=== PATIENT | female | born 1950 | race American Indian/Alaskan Native ===

== ENCOUNTER 2017-07-05 10:53 | Inpatient (IN) | payer MEDICARE ==
[2017-07-05 10:53] VITALS: BMI 26.6
--- NOTE | 2017-07-05 12:41 | C.PDOC ---
History Of Present Illness 66 y/o female with history of alcoholism presents to ED sent by Dr. Ellison for evaluation of abdomen distention developed 3 weeks ago. Patient admits to cocaine use, last use was 1 week ago and states she stopped drinking 2 days ago after she saw Dr. Ellison. Patient admits to trouble breathing secondary to symptom and reports occasional abdomen pain. Patient denies fever, chills, chest pain, nausea, vomiting or any other complaints at this time. Time Seen by Provider: 07/05/17 11:38 Chief Complaint (Nursing): Abdominal Pain History Per: Patient History/Exam Limitations: no limitations Onset/Duration Of Symptoms: Days, Waxing/Waning Location Of Pain/Discomfort: Diffuse Past Medical History Reviewed: Historical Data, Nursing Documentation, Vital Signs Vital Signs: Last Vital Signs Temp 97.9 F 07/05/17 10:56 Pulse 107 H 07/05/17 10:56 Resp 20 07/05/17 10:56 BP 171/94 H 07/05/17 10:56 Pulse Ox 95 07/05/17 13:51 - Medical History PMH: Gastrointestinal Ulcer Surgical History: No Surg Hx Family History: States: No Known Family Hx - Social History Hx Alcohol Use: Yes Hx Substance Use: No Review Of Systems Constitutional: Negative for: Fever, Chills Cardiovascular: Negative for: Chest Pain Respiratory: Negative for: Cough, Shortness of Breath Gastrointestinal: Positive for: Abdominal Pain. Negative for: Nausea, Vomiting Skin: Negative for: Rash Physical Exam - Physical Exam Appears: Non-toxic, No Acute Distress Skin: Warm, Dry Head: Atraumatic, Normacephalic Oral Mucosa: Moist Neck: Normal ROM, Supple Cardiovascular: Rhythm Regular, Other (Tachycardic) Respiratory: Normal Breath Sounds, No Rales, No Rhonchi, No Wheezing Gastrointestinal/Abdominal: No Tenderness, Distention, Ascites Back: No CVA Tenderness Extremity: No Deformity, Other (bilateral distal legs chronic skin dried crusty changes) Extremity: Bilateral: Normal ROM Pulses: Left Dorsalis Pedis: Normal, Right Dorsalis Pedis: Normal Neurological/Psych: Oriented x3, Normal Speech ED Course And Treatment - Laboratory Results Result Diagrams: 07/05/17 12:40 07/05/17 12:40 ECG: Interpreted By Me, Viewed By Me ECG Rhythm: Sinus Rhythm Rate From EC (BPM) O2 Sat by Pulse Oximetry: 95 (RA) Pulse Ox Interpretation: Normal Progress Note: Consulted with GI. Blood work, UA, CTA, CXR ordered. Patient admitted to hospital for IR procedure Medical Decision Making Medical Decision Making: discussed with Dr Oral Chavez, will admit to his service. Disposition - Disposition Disposition: HOSPITALIZED Disposition Time: 13:24 Condition: FAIR - Clinical Impression Clinical Impression: Ascites, Liver disease - PA / EVENTS TRAFFIC CONTROLLER / Resident Statement MD/DO has reviewed & agrees with the documentation as recorded. - Scribe Statement The provider has reviewed the documentation as recorded by the Noamibwali Gill All medical record entries made by the Simon were at my direction and personally dictated by me. I have reviewed the chart and agree that the record accurately reflects my personal performance of the history, physical exam, medical decision making, and the department course for this patient. I have also personally directed, reviewed, and agree with the discharge instructions and disposition.
[2017-07-05 12:46] LABS: BASO % 0.8 % (0.0-2.0); EOS # 0.1 K/uL (0.0-0.7); EOS % 1.9 % (0.0-4.0); HEMOGLOBIN 14.8 g/dL (11.0-16.0); LYMPH # 0.8 K/uL (1.0-4.3); LYMPH % 19.6 % (20.0-40.0); MEAN CORPUSCULAR HEMOGLOBIN 32.8 pg (27.0-31.0); MEAN CORPUSCULAR HGB CONC 33.8 g/dL (33.0-37.0); MEAN PLATELET VOLUME 9.9 fL (7.2-11.7); MONO # 0.5 K/uL (0.0-0.8); MONO % 13.7 % (0.0-10.0); NEUT # 2.5 K/uL (1.8-7.0); NRBC % 0.1 % (0.0-2.0); RBC 4.52 Mil/uL (3.80-5.20); RED CELL DISTRIBUTION WIDTH 14.6 % (11.5-14.5)
[2017-07-05 12:48] VITALS: RESP 20
[2017-07-05 12:54] LABS: INR 1.8
[2017-07-05 13:01] LABS: ALB/GLOB RATIO 0.5 (1.0-2.1); ALBUMIN 3.2 g/dL (3.5-5.0); ALT/SGPT 34 U/L (9-52); AST/SGOT 70 U/L (14-36); BLOOD UREA NITROGEN 13 mg/dL (7-17); CALCIUM 8.3 mg/dl (8.6-10.4); GFR AFRICAN-AMERICAN > 60; GFR NON-AFRICAN AMERICAN 55; LIPASE 109 U/L (23-300)
[2017-07-05 13:06] LABS: PROTHROMBIN TIME 21.2 SECONDS (9.7-12.2)
[2017-07-05 14:05] LABS: HEPATITIS B SURFACE AG Negative (NEGATIVE)
[2017-07-05 14:11] LABS: HEPATITIS A IGM NEGATIVE (NEGATIVE); HEPATITIS B CORE AB NEGATIVE (NEGATIVE)
[2017-07-05] MEDS ORDERED: Iodixanol 320 MG/ML 100 ML BOTTLE IV ONE (14:27)
--- NOTE | 2017-07-05 14:36 | RAD ---
Chest x-ray single frontal view History: Chest pain. Comparison: None available. Findings: Patchy consolidative changes at the left lung base which may represent atelectasis and or infiltrate. Question trace left pleural effusion. Tortuous ectatic aorta. Top normal heart size. Degenerative changes in the spine and shoulders. Small punctate nodular density in the lateral aspect of the right midlung zone. Impression: Patchy consolidative changes at the left lung base which may represent atelectasis and or infiltrate. Question trace left pleural effusion. Tortuous ectatic aorta. Top normal heart size. Degenerative changes in the spine and shoulders. Small punctate nodular density in the lateral aspect of the right midlung zone.
--- NOTE | 2017-07-05 15:13 | CT ---
PROCEDURE: CT Abdomen and Pelvis with and without intravenous contrast HISTORY: ascites COMPARISON: None. TECHNIQUE: Axial images of the abdomen were obtained in the pre contrast, hepatic arterial and portal venous phases of enhancement. Precontrast images of the pelvis were also included. Coronal and sagittal reformats were generated. Contrast dose: 100 mL Visipaque 320 Radiation dose: Total exam DLP = 2484.36 mGy-cm. This CT exam was performed using one or more of the following dose reduction techniques: Automated exposure control, adjustment of the mA and/or kV according to patient size, and/or use of iterative reconstruction technique. FINDINGS: LOWER THORAX: Bilateral lower lobe linear scar/ atelectasis. LIVER: Severe atrophy with nodular contour consistent with hepatic cirrhosis. No mass. No evidence of arterial phase enhancement to suggest early hepatic cellular neoplasm. No biliary dilatation. GALLBLADDER AND BILE DUCTS: Unremarkable. PANCREAS: Unremarkable. No gross lesion or ductal dilatation. SPLEEN: Mild splenomegaly. The spleen measures up to 14.2 cm greatest dimension. No mass. ADRENALS: Unremarkable. No mass. KIDNEYS AND URETERS: Unremarkable. No hydronephrosis. No solid mass. VASCULATURE: Unremarkable. No aortic aneurysm. BOWEL: Unremarkable. No obstruction. No gross mural thickening. APPENDIX: Not identified. No secondary findings. PERITONEUM: Massive ascites. LYMPH NODES: Unremarkable. No enlarged lymph nodes. BLADDER: Nondistended REPRODUCTIVE: Uterus significant for coarse calcification, likely calcified degenerated fibroids. BONES: Mild lumbar levoscoliosis. OTHER FINDINGS: None. IMPRESSION: Hepatic cirrhosis. No evidence of hepatocellular neoplasm. Mild splenomegaly. Massive ascites.
[2017-07-05 15:47] LABS: HEPATITIS C ANTIBODY REACTIVE (NEGATIVE)
--- NOTE | 2017-07-05 15:54 | CP.PCM.CON ---
<Adali Chavez - Last Filed: 07/05/17 18:05> History of Present Illness - History of Present Illness History of Present Illness: PGY4 Initial GI Consultation Latisha Garner is a 66 year old female with history of ETOH cirrhosis, chronic HCV (diagnosed 2015, treatment naive) who presented to Dr. Black office 2 days ago with complaints of abd distention. She reported progressive abdominal pain and distention over the past one month. She describes generalized discomfort along with extreme dyspnea with minimal exertion. She has not seen any physician for management of her liver disease for the past 2 years. She denies nausea, vomiting, fever/chills, or rectal bleeding. She reports ongoing weight loss but cannot quantify amount. She continues to drink ETOH, approximately 3-4 drinks per week, previously consumed 3-4 drinks daily x 25 years. She had an EGD a few years ago which showed "ulcers" as per patient, no prior colonoscopy. Of note, she does have family history of colon cancer. PMHx: ETOH cirrhosis, chronic HCV (diagnosed 2015, treatment naive) PSHx: none Family Hx: Mother Colon Ca at age 60 Social Hx: Smoker 1/2 PPD for 20+ years, ETOH 3-4 alcohol drinks daily for 25+ years and significant consumption on the weekends, denies any illicit drug use Endo Hx: EGD 2013 "ulcers" ROS: 12 point ROS conducted, neg other than above= Past Patient History - Past Social History Smoking Status: Light Smoker < 10 Cigarettes Daily - CARDIAC Hx Pacemaker: No - NEUROLOGICAL Hx Paralysis: No - HEMATOLOGICAL/ONCOLOGICAL Hx Blood Transfusions: No - MUSCULOSKELETAL/RHEUMATOLOGICAL Hx Musculoskeletal Disorders: No - GASTROINTESTINAL Other/Comment: cirrhosis - PSYCHIATRIC Hx Substance Use: No - SURGICAL HISTORY Hx Surgeries: No - ANESTHESIA Hx Anesthesia Reactions: No Hx Malignant Hyperthermia: No Meds Allergies/Adverse Reactions: Allergies Allergy/AdvReac Type Severity Reaction Status Date / Time WHOLE MILK AdvReac Intermediate GI UPSET Uncoded 07/05/17 10:58 eggs AdvReac gi upset Uncoded 07/05/17 10:58 - Medications Medications: Current Medications Potassium Chloride (K-Dur 20 Meq Er Tab) 40 meq PO DAILY MILO Physical Exam - Constitutional Appears: Cachectic, Chronically Ill - Head Exam Head Exam: ATRAUMATIC, NORMOCEPHALIC - Eye Exam Eye Exam: Normal appearance - ENT Exam ENT Exam: Mucous Membranes Moist, Normal Exam - Neck Exam Neck exam: Positive for: Normal Inspection - Respiratory Exam Respiratory Exam: Clear to Auscultation Bilateral, NORMAL BREATHING PATTERN. absent: Rales, Rhonchi, Wheezes, Respiratory Distress - Cardiovascular Exam Cardiovascular Exam: REGULAR RHYTHM, +S1, +S2 - GI/Abdominal Exam GI & Abdominal Exam: Distended. absent: Guarding, Hernia, Rigid, Tenderness Additional comments: +fluid wave - Neurological Exam Neurological exam: Alert, Oriented x3 - Psychiatric Exam Psychiatric exam: Normal Affect, Normal Mood - Skin Skin Exam: Dry, Intact, Normal Color, Warm Results - Vital Signs Recent Vital Signs: Last Vital Signs Temp 98 F 07/05/17 14:59 Pulse 103 H 07/05/17 14:59 Resp 20 07/05/17 14:59 BP 117/72 07/05/17 14:59 Pulse Ox 96 07/05/17 14:59 - Labs Result Diagrams: 07/05/17 12:40 07/05/17 12:40 Labs: Laboratory Results - last 24 hr 07/05/17 07/05/17 07/05/17 12:40 12:40 12:40 WBC 4.0 L RBC 4.52 Hgb 14.8 Hct 43.8 MCV 97.0 MCH 32.8 H MCHC 33.8 RDW 14.6 H Plt Count 93 L MPV 9.9 Neut % (Auto) 64.0 Lymph % (Auto) 19.6 L Stark % (Auto) 13.7 H Eos % (Auto) 1.9 Baso % (Auto) 0.8 Neut # (Auto) 2.5 Lymph # (Auto) 0.8 L Stark # (Auto) 0.5 Eos # (Auto) 0.1 Baso # (Auto) 0.0 Differential Comment PT 21.2 H INR 1.8 APTT 41 H Sodium 139 Potassium 3.5 L Chloride 97 L Carbon Dioxide 28 Anion Gap 18 BUN 13 Creatinine 1.0 Est GFR ( Amer) > 60 Est GFR (Non-Af Amer) 55 Random Glucose 97 Lactic Acid Calcium 8.3 L Total Bilirubin 5.2 H AST 70 H ALT 34 Alkaline Phosphatase 118 Ammonia Total Protein 9.5 H Albumin 3.2 L Globulin 6.3 H Albumin/Globulin Ratio 0.5 L Lipase 109 Alpha Fetoprotein IgG Hepatitis A IgM Ab Hep Bs Antigen Hep B Core IgM Ab Hepatitis C Antibody 07/05/17 07/05/17 07/05/17 12:40 13:10 13:10 WBC RBC Hgb Hct MCV MCH MCHC RDW Plt Count MPV Neut % (Auto) Lymph % (Auto) Stark % (Auto) Eos % (Auto) Baso % (Auto) Neut # (Auto) Lymph # (Auto) Stark # (Auto) Eos # (Auto) Baso # (Auto) Differential Comment PT INR APTT Sodium Potassium Chloride Carbon Dioxide Anion Gap BUN Creatinine Est GFR ( Amer) Est GFR (Non-Af Amer) Random Glucose Lactic Acid 2.0 Calcium Total Bilirubin AST ALT Alkaline Phosphatase Ammonia 48 H Total Protein Albumin Globulin Albumin/Globulin Ratio Lipase Alpha Fetoprotein IgG 3634.2 H Hepatitis A IgM Ab Hep Bs Antigen Hep B Core IgM Ab Hepatitis C Antibody 07/05/17 07/05/17 13:10 13:10 WBC RBC Hgb Hct MCV MCH MCHC RDW Plt Count MPV Neut % (Auto) Lymph % (Auto) Stark % (Auto) Eos % (Auto) Baso % (Auto) Neut # (Auto) Lymph # (Auto) Stark # (Auto) Eos # (Auto) Baso # (Auto) Differential Comment PT INR APTT Sodium Potassium Chloride Carbon Dioxide Anion Gap BUN Creatinine Est GFR ( Amer) Est GFR (Non-Af Amer) Random Glucose Lactic Acid Calcium Total Bilirubin AST ALT Alkaline Phosphatase Ammonia Total Protein Albumin Globulin Albumin/Globulin Ratio Lipase Alpha Fetoprotein 6.7 IgG Hepatitis A IgM Ab Negative Hep Bs Antigen Negative Hep B Core IgM Ab Negative Hepatitis C Antibody Reactive Assessment & Plan - Assessment and Plan (Free Text) Assessment: Latihsa Garner is a 66 year old female with history of ETOH cirrhosis, chronic HCV (diagnosed 2016, treatment naive) who presented with abd distention Tense Ascites Decompensated liver cirrhosis etiology likely ETOH vs Hep C, r/o autominne or other viral etiologies Coagulopathy 2/2 to above Alcohol Abuse Fmaily hx of colon cancer Plan: -will need IR guided paracentesis -diagnostic and therapeutic tap -fluid analysis should include cell count w/ diff, total protein, and albumin -start lactulose daily for 2 BM daily -Liver Triple CT reviewed: neg HCC, + massive ascities -will need to eventually be started on diuretics after paracentesis -will need AMA, CADE, IGG, LIver-Kidney; hep viral panel -Hep C viral load -will eventually need EGD and colonoscopy Will d/W Dr. Ellison <Alan Ellison - Last Filed: 07/05/17 20:22> Meds - Medications Medications: Current Medications Furosemide (Lasix) 20 mg IVP DAILY MILO Lactulose (Enulose) 20 gm PO HS MILO Pantoprazole Sodium (Protonix Ec Tab) 40 mg PO DAILY MILO Potassium Chloride (K-Dur 20 Meq Er Tab) 40 meq PO DAILY MILO Last Admin: 07/05/17 16:15 Dose: 40 meq Results - Vital Signs Recent Vital Signs: Last Vital Signs Temp 98.4 F 07/05/17 15:00 Pulse 109 H 07/05/17 15:00 Resp 20 07/05/17 15:00 BP 146/92 H 07/05/17 15:00 Pulse Ox 96 07/05/17 15:00 - Labs Result Diagrams: 07/05/17 12:40 07/05/17 12:40 Labs: Laboratory Results - last 24 hr 07/05/17 07/05/17 07/05/17 12:40 12:40 12:40 WBC 4.0 L RBC 4.52 Hgb 14.8 Hct 43.8 MCV 97.0 MCH 32.8 H MCHC 33.8 RDW 14.6 H Plt Count 93 L MPV 9.9 Neut % (Auto) 64.0 Lymph % (Auto) 19.6 L Stark % (Auto) 13.7 H Eos % (Auto) 1.9 Baso % (Auto) 0.8 Neut # (Auto) 2.5 Lymph # (Auto) 0.8 L Stark # (Auto) 0.5 Eos # (Auto) 0.1 Baso # (Auto) 0.0 Differential Comment PT 21.2 H INR 1.8 APTT 41 H Sodium 139 Potassium 3.5 L Chloride 97 L Carbon Dioxide 28 Anion Gap 18 BUN 13 Creatinine 1.0 Est GFR ( Amer) > 60 Est GFR (Non-Af Amer) 55 Random Glucose 97 Lactic Acid Calcium 8.3 L Total Bilirubin 5.2 H AST 70 H ALT 34 Alkaline Phosphatase 118 Ammonia Total Protein 9.5 H Albumin 3.2 L Globulin 6.3 H Albumin/Globulin Ratio 0.5 L Lipase 109 Alpha Fetoprotein IgG Hepatitis A IgM Ab Hep Bs Antigen Hep B Core IgM Ab Hepatitis C Antibody 07/05/17 07/05/17 07/05/17 12:40 13:10 13:10 WBC RBC Hgb Hct MCV MCH MCHC RDW Plt Count MPV Neut % (Auto) Lymph % (Auto) Stark % (Auto) Eos % (Auto) Baso % (Auto) Neut # (Auto) Lymph # (Auto) Stark # (Auto) Eos # (Auto) Baso # (Auto) Differential Comment PT INR APTT Sodium Potassium Chloride Carbon Dioxide Anion Gap BUN Creatinine Est GFR ( Amer) Est GFR (Non-Af Amer) Random Glucose Lactic Acid 2.0 Calcium Total Bilirubin AST ALT Alkaline Phosphatase Ammonia 48 H Total Protein Albumin Globulin Albumin/Globulin Ratio Lipase Alpha Fetoprotein IgG 3634.2 H Hepatitis A IgM Ab Hep Bs Antigen Hep B Core IgM Ab Hepatitis C Antibody 07/05/17 07/05/17 13:10 13:10 WBC RBC Hgb Hct MCV MCH MCHC RDW Plt Count MPV Neut % (Auto) Lymph % (Auto) Stark % (Auto) Eos % (Auto) Baso % (Auto) Neut # (Auto) Lymph # (Auto) Stark # (Auto) Eos # (Auto) Baso # (Auto) Differential Comment PT INR APTT Sodium Potassium Chloride Carbon Dioxide Anion Gap BUN Creatinine Est GFR ( Amer) Est GFR (Non-Af Amer) Random Glucose Lactic Acid Calcium Total Bilirubin AST ALT Alkaline Phosphatase Ammonia Total Protein Albumin Globulin Albumin/Globulin Ratio Lipase Alpha Fetoprotein 6.7 IgG Hepatitis A IgM Ab Negative Hep Bs Antigen Negative Hep B Core IgM Ab Negative Hepatitis C Antibody Reactive Attending/Attestation - Attestation I have personally seen and examined this patient.: Yes I have fully participated in the care of the patient.: Yes I have reviewed all pertinent clinical information: Yes Notes (Text): 07/05/17 20:14 I have seen and examined patient with GI fellow. Agree with above documentation with the following additions. In brief, this is a 66 year old female with history of HCV (treatment naive)/ETOH cirrhosis who presents to hospital with complaint of progressive increase in abdominal girth and extreme dyspnea on exertion with fatigue for the past one month. She also reports recent weight loss but cannot quantify amount. She continues to consume ETOH ( up to 3-4 drinks per day). She also reports epigastric abdominal pain but denies nausea, vomiting, fever/chills, rectal bleeding. She had an EGD several years ago which showed ulcer disease according to patient, no prior colonoscopy. Additional physical examination: Abdomen: +hepato/splenomegaly HCV/ETOH decompensated cirrhosis, admission MELD 19 Ascites Weight loss Triple phase liver CT reviewed by me showing significant ascites, splenomegaly, no hepatic lesions - Low sodium diet as tolerated - Patient will require diagnostic and therapeutic paracentesis - Begin lactulose therapy for HE prevention - Patient will require diuretic therapy, will initiate following paracentesis - Obtain HCV viral load - Obtain autoimmune panel testing - LFTs stable, continue to monitor - Patient will eventually require EGD/colonoscopy particularly given family history of colon cancer. This can be arranged electively as outpatient pending patient clinical progress.
[2017-07-05] MEDS: Potassium Chloride 20 mEq ER Tab PO SCH (16:15)
--- NOTE | 2017-07-05 18:55 | CP.PCM.HP ---
Past Patient History - Past Social History Smoking Status: Light Smoker < 10 Cigarettes Daily - CARDIAC Hx Pacemaker: No - NEUROLOGICAL Hx Paralysis: No - HEMATOLOGICAL/ONCOLOGICAL Hx Blood Transfusions: No - MUSCULOSKELETAL/RHEUMATOLOGICAL Hx Musculoskeletal Disorders: No - GASTROINTESTINAL Other/Comment: cirrhosis - PSYCHIATRIC Hx Substance Use: No - SURGICAL HISTORY Hx Surgeries: No - ANESTHESIA Hx Anesthesia Reactions: No Hx Malignant Hyperthermia: No Meds Allergies/Adverse Reactions: Allergies Allergy/AdvReac Type Severity Reaction Status Date / Time WHOLE MILK AdvReac Intermediate GI UPSET Uncoded 07/05/17 10:58 eggs AdvReac gi upset Uncoded 07/05/17 10:58 Results - Vital Signs Recent Vital Signs: Last Vital Signs Temp 98.4 F 07/05/17 15:00 Pulse 109 H 07/05/17 15:00 Resp 20 07/05/17 15:00 BP 146/92 H 07/05/17 15:00 Pulse Ox 96 07/05/17 15:00 - Labs Result Diagrams: 07/05/17 12:40 07/05/17 12:40 Labs: Laboratory Results - last 24 hr 07/05/17 07/05/17 07/05/17 12:40 12:40 12:40 WBC 4.0 L RBC 4.52 Hgb 14.8 Hct 43.8 MCV 97.0 MCH 32.8 H MCHC 33.8 RDW 14.6 H Plt Count 93 L MPV 9.9 Neut % (Auto) 64.0 Lymph % (Auto) 19.6 L [place] % (Auto) 13.7 H Eos % (Auto) 1.9 Baso % (Auto) 0.8 Neut # (Auto) 2.5 Lymph # (Auto) 0.8 L [place] # (Auto) 0.5 Eos # (Auto) 0.1 Baso # (Auto) 0.0 Differential Comment PT 21.2 H INR 1.8 APTT 41 H Sodium 139 Potassium 3.5 L Chloride 97 L Carbon Dioxide 28 Anion Gap 18 BUN 13 Creatinine 1.0 Est GFR ( Amer) > 60 Est GFR (Non-Af Amer) 55 Random Glucose 97 Lactic Acid Calcium 8.3 L Total Bilirubin 5.2 H AST 70 H ALT 34 Alkaline Phosphatase 118 Ammonia Total Protein 9.5 H Albumin 3.2 L Globulin 6.3 H Albumin/Globulin Ratio 0.5 L Lipase 109 Alpha Fetoprotein IgG Hepatitis A IgM Ab Hep Bs Antigen Hep B Core IgM Ab Hepatitis C Antibody 07/05/17 07/05/17 07/05/17 12:40 13:10 13:10 WBC RBC Hgb Hct MCV MCH MCHC RDW Plt Count MPV Neut % (Auto) Lymph % (Auto) [place] % (Auto) Eos % (Auto) Baso % (Auto) Neut # (Auto) Lymph # (Auto) [place] # (Auto) Eos # (Auto) Baso # (Auto) Differential Comment PT INR APTT Sodium Potassium Chloride Carbon Dioxide Anion Gap BUN Creatinine Est GFR ( Amer) Est GFR (Non-Af Amer) Random Glucose Lactic Acid 2.0 Calcium Total Bilirubin AST ALT Alkaline Phosphatase Ammonia 48 H Total Protein Albumin Globulin Albumin/Globulin Ratio Lipase Alpha Fetoprotein IgG 3634.2 H Hepatitis A IgM Ab Hep Bs Antigen Hep B Core IgM Ab Hepatitis C Antibody 07/05/17 07/05/17 13:10 13:10 WBC RBC Hgb Hct MCV MCH MCHC RDW Plt Count MPV Neut % (Auto) Lymph % (Auto) [place] % (Auto) Eos % (Auto) Baso % (Auto) Neut # (Auto) Lymph # (Auto) [place] # (Auto) Eos # (Auto) Baso # (Auto) Differential Comment PT INR APTT Sodium Potassium Chloride Carbon Dioxide Anion Gap BUN Creatinine Est GFR ( Amer) Est GFR (Non-Af Amer) Random Glucose Lactic Acid Calcium Total Bilirubin AST ALT Alkaline Phosphatase Ammonia Total Protein Albumin Globulin Albumin/Globulin Ratio Lipase Alpha Fetoprotein 6.7 IgG Hepatitis A IgM Ab Negative Hep Bs Antigen Negative Hep B Core IgM Ab Negative Hepatitis C Antibody Reactive Assessment & Plan - Assessment and Plan (Free Text) Plan: lactulose protonix scd lasix lctulose gi consult ir for ascitic tapping
[2017-07-05] MEDS ORDERED: Morphine 4 MG/ML VIAL IVP PRN (21:21)
[2017-07-05 22:30] LABS: URINE BILIRUBIN 2+ (NEGATIVE); URINE BLOOD NEGATIVE (NEGATIVE); URINE CLARITY Clear (Clear); URINE COLOR Amber (YELLOW); URINE GLUCOSE (UA) NORMAL (Normal); URINE LEUKOCYTE ESTERASE NEG Leu/uL (Negative); URINE PROTEIN 2+ mg/dL (NEGATIVE)
[2017-07-06 07:20] LABS: BASO % 0.4 % (0.0-2.0); EOS # 0.1 K/uL (0.0-0.7); EOS % 1.2 % (0.0-4.0); LYMPH % 20.7 % (20.0-40.0); MEAN CELL VOLUME 96.1 fL (81.0-99.0); MEAN CORPUSCULAR HEMOGLOBIN 32.7 pg (27.0-31.0); MEAN PLATELET VOLUME 9.4 fL (7.2-11.7); MONO # 0.7 K/uL (0.0-0.8); MONO % 15.4 % (0.0-10.0); NEUT % 62.3 % (50.0-75.0); NRBC % 0.1 % (0.0-2.0); RBC 3.99 Mil/uL (3.80-5.20); RED CELL DISTRIBUTION WIDTH 14.4 % (11.5-14.5); WHITE BLOOD COUNT 4.7 K/uL (4.8-10.8)
[2017-07-06 07:28] LABS: INR 2.1; PROTHROMBIN TIME 24.1 SECONDS (9.7-12.2)
[2017-07-06 07:31] LABS: ALB/GLOB RATIO 0.5 (1.0-2.1); ALBUMIN 2.6 g/dL (3.5-5.0); ALT/SGPT 31 U/L (9-52); AST/SGOT 54 U/L (14-36); BLOOD UREA NITROGEN 13 mg/dL (7-17); CALCIUM 7.8 mg/dl (8.6-10.4); GFR AFRICAN-AMERICAN > 60; GFR NON-AFRICAN AMERICAN > 60
--- NOTE | 2017-07-06 11:08 | PCM.SURG1 ---
Surgeon's Initial Post Op Note - Surgeon's Notes Surgeon: Nestor Gomes MD Spacecraft Systems Engineer: NONE Type of Anesthesia: Local Pre-Operative Diagnosis: Ascites, abdominal pain Operative Findings: US showed a large amount of ascites Post-Operative Diagnosis: Ascites Operation Performed: US guided paracentesis Specimen/Specimens Removed: 8 liters of straw colored fluid Estimated Blood Loss: EBL {In ML}: 0 Blood Products Given: N/A Drains Used: No Drains Post-Op Condition: Fair Date of Surgery/Procedure: 07/06/17 Time of Surgery/Procedure: 11:00
[2017-07-06] MEDS: Pantoprazole 40 mg EC Tab PO SCH (11:59)
[2017-07-06] MEDS: Potassium Chloride 20 mEq ER Tab PO SCH (11:59)
[2017-07-06 12:41] LABS: BODY FLUID TYPE PERITONEAL/ASCITES
--- NOTE | 2017-07-06 12:52 | US ---
Date of Procedure: 07/06/2017 PROCEDURE: Ultrasound-guided paracentesis, CPT 90799 Medications: 7 cc 1% Lidocaine HISTORY: Ascites, abdominal pain TECHNIQUE: Following informed consent , the patient was placed supine on the stretcher and the site was marked. A limited abdominal ultrasound was performed that showed a large amount of intra-abdominal fluid. Procedural time out was called and the Pt's abdomen was marked and prepped and draped in the usual sterile fashion. Ultrasound-guided large volume paracentesis performed. A total of 8 liters of straw colored fluid was removed without complication. IMPRESSION: Ultrasound-guided large volume paracentesis.
[2017-07-06] MEDS ORDERED: Albumin Human 25% (12.5 gm/50 ml) IV ONE ×2 (13:11→13:12)
--- NOTE | 2017-07-06 13:21 | CP.PCM.PN ---
<Adali Chavez - Last Filed: 07/06/17 13:22> Subjective - Date & Time of Evaluation Date of Evaluation: 07/06/17 Time of Evaluation: 08:00 - Subjective Subjective: PGY4 GI Follow-up Pt seen and examined bedside Had abd discomfort in the AM tolerating diet +BM Denies any fever, chills or diaphoresis ROS: 10 point ROS conducted, neg other than above Objective - Vital Signs/Intake and Output Vital Signs (last 24 hours): Temp Pulse Resp BP Pulse Ox 98.1 F 99 H 20 119/70 97 07/06/17 11:47 07/06/17 11:47 07/06/17 11:47 07/06/17 12:02 07/06/17 11:47 - Medications Medications: Current Medications Furosemide (Lasix) [address] [facility] Last Admin: 07/06/17 12:02 Dose: 20 mg Lactulose (Enulose) [address] [facility] Last Admin: 07/05/17 22:25 Dose: 20 gm Morphine Sulfate (Morphine) 2 mg IVP Q8 PRN PRN Reason: Pain, moderate (4-7) Pantoprazole Sodium (Protonix Ec Tab) [address] [facility] Last Admin: 07/06/17 11:59 Dose: 40 mg Pneumococcal Polyvalent Vaccine (Pneumovax 23 Vaccine) 0.5 ml IM .ONCE ONE Stop: 07/08/17 10:01 Potassium Chloride (K-Dur 20 Meq Er Tab) [address] [facility] Last Admin: 07/06/17 11:59 Dose: 40 meq - Labs Labs: 07/06/17 07:09 07/06/17 07:09 PT 24.1 SECONDS (9.7-12.2) H 07/06/17 07:09 INR 2.1 07/06/17 07:09 APTT 41 SECONDS (21-34) H 07/05/17 12:40 - Constitutional Appears: Well, No Acute Distress - Head Exam Head Exam: ATRAUMATIC, NORMOCEPHALIC - Eye Exam Eye Exam: Normal appearance - ENT Exam ENT Exam: Mucous Membranes Moist, Normal Exam - Neck Exam Neck Exam: Normal Inspection - Respiratory Exam Respiratory Exam: Clear to Ausculation Bilateral, NORMAL BREATHING PATTERN. absent: Rales, Rhonchi, Wheezes, Respiratory Distress - Cardiovascular Exam Cardiovascular Exam: REGULAR RHYTHM, +S1, +S2 - GI/Abdominal Exam GI & Abdominal Exam: Distended, Normal Bowel Sounds. absent: Guarding, Rigid, Tenderness, Organomegaly - Extremities Exam Extremities Exam: Pedal Edema. absent: Joint Swelling - Neurological Exam Neurological Exam: Alert, Awake, Oriented x3 - Psychiatric Exam Psychiatric exam: Normal Affect, Normal Mood - Skin Skin Exam: Dry, Intact, Normal Color, Warm Assessment and Plan - Assessment and Plan (Free Text) Assessment: Latisha Garner is a 66 year old female with history of ETOH cirrhosis, chronic HCV (diagnosed 2016, treatment naive) who presented with abd distention Tense Ascites s/p 8 L removed Decompensated liver cirrhosis etiology likely ETOH vs Hep C, r/o autominne or other viral etiologies Coagulopathy 2/2 to above Alcohol Abuse Fmaily hx of colon cancer Plan: -8L remove, will give 25g albumin replacement -continue lactulose daily for 2 BM daily -Liver Triple CT reviewed: neg HCC, + massive ascities -continue lasix 40mg and aldactone 100mg at home daily -Hep C viral load -will eventually need EGD and colonoscopy -follow-up with as an oupt in 2 weeks D/W Dr. Hines <Pardeep Hines - Last Filed: 07/06/17 18:18> Objective - Vital Signs/Intake and Output Vital Signs (last 24 hours): Temp Pulse Resp BP Pulse Ox 98.2 F 98 H 20 126/72 98 07/06/17 15:00 07/06/17 15:00 07/06/17 15:00 07/06/17 15:00 07/06/17 15:00 Intake and Output: 07/06/17 07/06/17 06:59 18:59 Intake Total 500 Balance 500 - Medications Medications: Current Medications Furosemide (Lasix) [address] [facility] Last Admin: 07/06/17 12:02 Dose: 20 mg Lactulose (Enulose) 20 gm PO [facility] Last Admin: 07/05/17 22:25 Dose: 20 gm Morphine Sulfate (Morphine) 2 mg IVP Q8 PRN PRN Reason: Pain, moderate (4-7) Pantoprazole Sodium (Protonix Ec Tab) [address] [facility] Last Admin: 07/06/17 11:59 Dose: 40 mg Pneumococcal Polyvalent Vaccine (Pneumovax 23 Vaccine) 0.5 ml IM .ONCE ONE Stop: 07/08/17 10:01 Potassium Chloride (K-Dur 20 Meq Er Tab) 40 meq PO DAILY [facility] Last Admin: 07/06/17 11:59 Dose: 40 meq - Labs Labs: 07/06/17 07:09 07/06/17 07:09 PT 24.1 SECONDS (9.7-12.2) H 07/06/17 07:09 INR 2.1 07/06/17 07:09 APTT 41 SECONDS (21-34) H 07/05/17 12:40 Attending/Attestation - Attestation I have personally seen and examined this patient.: Yes I have fully participated in the care of the patient.: Yes I have reviewed all pertinent clinical information, including history, physical exam and plan: Yes Notes (Text): 07/06/17 18:17 66 year old female with HCV/ETOH cirrhosis admitted with new onset ascites, now s/p paracentesis. Albumin ordered. NO sbp. No evidence of HCC. Outpatient endoscopic eval. Start diuretics. low sodium diet.
[2017-07-06 13:29] LABS: BF GROSS APPEARANCE CLOUDY (CLEAR)
[2017-07-06 13:30] LABS: BODY FLUID MONO/MACROPHAGE 5 % (0-0)
--- NOTE | 2017-07-06 13:34 | CARD ---
APPROVED REPORT EKG Measurement Heart [id number] <Conclusion> Sinus rhythm with premature atrial complexes Moderate voltage criteria for LVH, may be normal variant Nonspecific T wave abnormality Abnormal ECG
--- NOTE | 2017-07-06 17:27 | CP.PCM.PN ---
Subjective - Date & Time of Evaluation Date of Evaluation: 07/06/17 Time of Evaluation: 10:00 - Subjective Subjective: clinically same Objective - Vital Signs/Intake and Output Vital Signs (last 24 hours): Temp Pulse Resp BP Pulse Ox 98.2 F 98 H 20 126/72 98 07/06/17 15:00 07/06/17 15:00 07/06/17 15:00 07/06/17 15:00 07/06/17 15:00 Intake and Output: 07/06/17 07/06/17 06:59 18:59 Intake Total 500 Balance 500 - Medications Medications: Current Medications Furosemide (Lasix) 20 mg IVP DAILY [facility] Last Admin: 07/06/17 12:02 Dose: 20 mg Lactulose (Enulose) 20 gm PO [facility] Last Admin: 07/05/17 22:25 Dose: 20 gm Morphine Sulfate (Morphine) 2 mg IVP Q8 PRN PRN Reason: Pain, moderate (4-7) Pantoprazole Sodium (Protonix Ec Tab) 40 mg PO DAILY [facility] Last Admin: 07/06/17 11:59 Dose: 40 mg Pneumococcal Polyvalent Vaccine (Pneumovax 23 Vaccine) 0.5 ml IM .ONCE ONE Stop: 07/08/17 10:01 Potassium Chloride (K-Dur 20 Meq Er Tab) 40 meq PO DAILY [facility] Last Admin: 07/06/17 11:59 Dose: 40 meq - Labs Labs: 07/06/17 07:09 07/06/17 07:09 PT 24.1 SECONDS (9.7-12.2) H 07/06/17 07:09 INR 2.1 07/06/17 07:09 APTT 41 SECONDS (21-34) H 07/05/17 12:40 - Constitutional Appears: Well - Head Exam Head Exam: ATRAUMATIC, NORMAL INSPECTION, NORMOCEPHALIC - Eye Exam Eye Exam: EOMI, Normal appearance, PERRL Pupil Exam: NORMAL ACCOMODATION, PERRL - ENT Exam ENT Exam: Mucous Membranes Moist, Normal Exam - Neck Exam Neck Exam: Full ROM, Normal Inspection. absent: Lymphadenopathy - Respiratory Exam Respiratory Exam: Decreased Breath Sounds - Cardiovascular Exam Cardiovascular Exam: REGULAR RHYTHM, +S1, +S2 - GI/Abdominal Exam GI & Abdominal Exam: Soft, Diminished Bowel Sounds - Rectal Exam Rectal Exam: Deferred Assessment and Plan - Assessment and Plan (Free Text) Plan: Patient's abdominal discomfort is better Status post NSAID therapy Tolerating diet Continue on morphine leg Lasix lactulose Status post KCl supplementation Removal of 8 L of ascitic fluid Albumin replacement as per the GI Liver CT as per GI Hepatitis C viral load Workup as per GI
[2017-07-07 01:29] VITALS: TEMP 98.7
[2017-07-07 06:45] LABS: BASO % 0.8 % (0.0-2.0); EOS # 0.1 K/uL (0.0-0.7); EOS % 1.7 % (0.0-4.0); HEMOGLOBIN 12.9 g/dL (11.0-16.0); LYMPH # 0.9 K/uL (1.0-4.3); LYMPH % 24.3 % (20.0-40.0); MEAN CELL VOLUME 97.2 fL (81.0-99.0); MEAN CORPUSCULAR HEMOGLOBIN 33.6 pg (27.0-31.0); MEAN CORPUSCULAR HGB CONC 34.5 g/dL (33.0-37.0); MONO # 0.6 K/uL (0.0-0.8); MONO % 15.7 % (0.0-10.0); NEUT # 2.1 K/uL (1.8-7.0); NEUT % 57.5 % (50.0-75.0); NRBC % 0.1 % (0.0-2.0); RBC 3.85 Mil/uL (3.80-5.20); RED CELL DISTRIBUTION WIDTH 14.3 % (11.5-14.5); WHITE BLOOD COUNT 3.6 K/uL (4.8-10.8)
[2017-07-07 07:16] LABS: ALB/GLOB RATIO 0.5 (1.0-2.1); ALBUMIN 2.5 g/dL (3.5-5.0); ALT/SGPT 23 U/L (9-52); AST/SGOT 51 U/L (14-36); BLOOD UREA NITROGEN 15 mg/dL (7-17); CALCIUM 7.6 mg/dl (8.6-10.4); GFR AFRICAN-AMERICAN > 60; GFR NON-AFRICAN AMERICAN > 60
--- NOTE | 2017-07-07 10:08 | CP.PCM.PN ---
<Adali Chavez - Last Filed: 07/07/17 10:08> Subjective - Date & Time of Evaluation Date of Evaluation: 07/07/17 Time of Evaluation: 07:45 - Subjective Subjective: PGY4 GI Follow-up Pt seen and examined bedside +abd distention tolerating diet +BM ROS: 10 point ROS conducted, neg other than above Objective - Vital Signs/Intake and Output Vital Signs (last 24 hours): Temp Pulse Resp BP Pulse Ox 98.7 F 98 H 20 143/84 97 07/07/17 08:16 07/07/17 08:16 07/07/17 08:16 07/07/17 08:16 07/07/17 08:16 Intake and Output: 07/07/17 07/07/17 06:59 18:59 Intake Total 150 Balance 150 - Medications Medications: Current Medications Furosemide (Lasix) 20 mg IVP DAILY [facility] Last Admin: 07/06/17 12:02 Dose: 20 mg Lactulose (Enulose) 20 gm PO HS [facility] Last Admin: 07/06/17 21:26 Dose: 20 gm Morphine Sulfate (Morphine) 2 mg IVP Q8 PRN PRN Reason: Pain, moderate (4-7) Pantoprazole Sodium (Protonix Ec Tab) 40 mg PO DAILY [facility] Last Admin: 07/06/17 11:59 Dose: 40 mg Pneumococcal Polyvalent Vaccine (Pneumovax 23 Vaccine) 0.5 ml IM .ONCE ONE Stop: 07/08/17 10:01 Potassium Chloride (K-Dur 20 Meq Er Tab) 40 meq PO DAILY [facility] Last Admin: 07/06/17 11:59 Dose: 40 meq - Labs Labs: 07/07/17 06:37 07/07/17 06:37 PT 24.1 SECONDS (9.7-12.2) H 07/06/17 07:09 INR 2.1 07/06/17 07:09 APTT 41 SECONDS (21-34) H 07/05/17 12:40 - Constitutional Appears: Well, No Acute Distress - Head Exam Head Exam: ATRAUMATIC, NORMOCEPHALIC - Eye Exam Eye Exam: Normal appearance - ENT Exam ENT Exam: Mucous Membranes Moist, Normal Exam - Respiratory Exam Respiratory Exam: Clear to Ausculation Bilateral, NORMAL BREATHING PATTERN. absent: Rales, Rhonchi, Wheezes, Respiratory Distress - Cardiovascular Exam Cardiovascular Exam: REGULAR RHYTHM, +S1, +S2 - GI/Abdominal Exam GI & Abdominal Exam: Distended, Soft, Normal Bowel Sounds. absent: Guarding, Tenderness - Neurological Exam Neurological Exam: Alert, Awake, Oriented x3 - Psychiatric Exam Psychiatric exam: Normal Affect, Normal Mood - Skin Skin Exam: Dry, Intact, Normal Color, Warm Assessment and Plan - Assessment and Plan (Free Text) Assessment: Latisha Garner is a 66 year old female with history of ETOH cirrhosis, chronic HCV (diagnosed 2016, treatment naive) who presented with abd distention Tense Ascites s/p 8 L removed Decompensated liver cirrhosis etiology likely ETOH vs Hep C, r/o autominne or other viral etiologies Coagulopathy 2/2 to above Alcohol Abuse Fmaily hx of colon cancer Plan: -continue lactulose daily for 2 BM daily -Liver Triple CT reviewed: neg HCC, + massive ascities -continue lasix 40mg and aldactone 100mg at home daily -Hep C viral load -will eventually need EGD and colonoscopy -follow-up with as an oupt in 1-2 weeks -will need another paracentesis son, but can be done as an oupt D/W Dr. Hines <Pardeep Hines - Last Filed: 07/07/17 10:25> Objective - Vital Signs/Intake and Output Vital Signs (last 24 hours): Temp Pulse Resp BP Pulse Ox 98.7 F 98 H 20 143/84 97 07/07/17 08:16 07/07/17 08:16 07/07/17 08:16 07/07/17 08:16 07/07/17 08:16 Intake and Output: 07/07/17 07/07/17 06:59 18:59 Intake Total 150 Balance 150 - Medications Medications: Current Medications Furosemide (Lasix) 20 mg IVP DAILY [facility] Last Admin: 07/06/17 12:02 Dose: 20 mg Lactulose (Enulose) 20 gm PO HS [facility] Last Admin: 07/06/17 21:26 Dose: 20 gm Morphine Sulfate (Morphine) 2 mg IVP Q8 PRN PRN Reason: Pain, moderate (4-7) Pantoprazole Sodium (Protonix Ec Tab) 40 mg PO DAILY [facility] Last Admin: 07/06/17 11:59 Dose: 40 mg Pneumococcal Polyvalent Vaccine (Pneumovax 23 Vaccine) 0.5 ml IM .ONCE ONE Stop: 07/08/17 10:01 Potassium Chloride (K-Dur 20 Meq Er Tab) 40 meq PO DAILY [facility] Last Admin: 07/06/17 11:59 Dose: 40 meq - Labs Labs: 07/07/17 06:37 07/07/17 06:37 PT 24.1 SECONDS (9.7-12.2) H 07/06/17 07:09 INR 2.1 07/06/17 07:09 APTT 41 SECONDS (21-34) H 07/05/17 12:40 Attending/Attestation - Attestation I have personally seen and examined this patient.: Yes I have fully participated in the care of the patient.: Yes I have reviewed all pertinent clinical information, including history, physical exam and plan: Yes Notes (Text): 07/07/17 10:24 66 year old female with HCV/ETOH cirrhosis admitted with new onset ascites, now s/p paracentesis. Albumin ordered. NO sbp. No evidence of HCC. Outpatient endoscopic eval. Start diuretics. low sodium diet. Ok for discharge. Outpatient f/u with anthony. will sign off.
[2017-07-07 10:25] VITALS: BP 105/71
[2017-07-07] MEDS: Pantoprazole 40 mg EC Tab PO SCH (10:25)
[2017-07-07] MEDS: Potassium Chloride 20 mEq ER Tab PO SCH (10:25)
[2017-07-07 11:02] LABS: PROTHROMBIN TIME 23.6 SECONDS (9.7-12.2)
--- NOTE | 2017-07-07 12:45 | CP.PCM.PN ---
Subjective - Date & Time of Evaluation Date of Evaluation: 07/07/17 Time of Evaluation: 08:20 - Subjective Subjective: clinically same Objective - Vital Signs/Intake and Output Vital Signs (last 24 hours): Temp Pulse Resp BP Pulse Ox 98.7 F 98 H 20 105/71 97 07/07/17 08:16 07/07/17 08:16 07/07/17 08:16 07/07/17 10:25 07/07/17 08:16 Intake and Output: 07/07/17 07/07/17 06:59 18:59 Intake Total 150 Balance 150 - Medications Medications: Current Medications Furosemide (Lasix) 20 mg IVP DAILY [facility] Last Admin: 07/07/17 10:25 Dose: 20 mg Lactulose (Enulose) 20 gm PO [facility] Last Admin: 07/06/17 21:26 Dose: 20 gm Morphine Sulfate (Morphine) 2 mg IVP Q8 PRN PRN Reason: Pain, moderate (4-7) Pantoprazole Sodium (Protonix Ec Tab) 40 mg PO DAILY [facility] Last Admin: 07/07/17 10:25 Dose: 40 mg Pneumococcal Polyvalent Vaccine (Pneumovax 23 Vaccine) 0.5 ml IM .ONCE ONE Stop: 07/08/17 10:01 Potassium Chloride (K-Dur 20 Meq Er Tab) 40 meq PO DAILY [facility] Last Admin: 07/07/17 10:25 Dose: 40 meq - Labs Labs: 07/07/17 06:37 07/07/17 06:37 PT 23.6 SECONDS (9.7-12.2) H 07/07/17 10:52 INR 2.0 07/07/17 10:52 APTT 41 SECONDS (21-34) H 07/05/17 12:40 - Constitutional Appears: Well - Head Exam Head Exam: ATRAUMATIC, NORMAL INSPECTION, NORMOCEPHALIC - Eye Exam Eye Exam: EOMI, Normal appearance, PERRL Pupil Exam: NORMAL ACCOMODATION, PERRL - ENT Exam ENT Exam: Mucous Membranes Moist, Normal Exam - Neck Exam Neck Exam: Full ROM, Normal Inspection. absent: Lymphadenopathy - Respiratory Exam Respiratory Exam: Decreased Breath Sounds - Cardiovascular Exam Cardiovascular Exam: REGULAR RHYTHM, +S1, +S2 - GI/Abdominal Exam GI & Abdominal Exam: Soft, Diminished Bowel Sounds - Rectal Exam Rectal Exam: Deferred
[2017-07-07] MEDS ORDERED: Influenza Vaccine 60 mcg/0.5 mL SYR (4YR UP) IM ONE (14:00)
[2017-07-07] MEDS ORDERED: Pneumococcal 23-Valent Vaccine IM ONE (14:00)
[2017-07-07 15:42] VITALS: PULSE 94
--- NOTE | 2017-07-07 16:04 | CP.PCM.PN ---
Subjective - Date & Time of Evaluation Date of Evaluation: 07/07/17 Time of Evaluation: 10:00 - Subjective Subjective: Alert, awake, no sob or abdominal pains, NAD. Objective - Vital Signs/Intake and Output Vital Signs (last 24 hours): Temp Pulse Resp BP Pulse Ox 98.7 F 94 H 20 105/71 97 07/07/17 08:16 07/07/17 10:24 07/07/17 08:16 07/07/17 10:25 07/07/17 08:16 Intake and Output: 07/07/17 07/07/17 06:59 18:59 Intake Total 150 590 Balance 150 590 - Labs Labs: 07/07/17 06:37 07/07/17 06:37 PT 23.6 SECONDS (9.7-12.2) H 07/07/17 10:52 INR 2.0 07/07/17 10:52 APTT 41 SECONDS (21-34) H 07/05/17 12:40 Assessment and Plan - Assessment and Plan (Free Text) Assessment: Patient admitted with large ascites, s/p paracentesis yesterday, seen and examined. Alert and orientedx3, denies any pain or distress. Abdomen remains distended but improved. Able to eat, no pain or vomiting. Discussed with DR Hattie Chavez , plan to discharge home today on present meds. Advised to follow up with PMD in 1 week.
[2017-07-08] MEDS ORDERED: Pneumococcal 23-Valent Vaccine IM ONE (10:00)
[2017-07-08] MEDS ORDERED: Influenza Vaccine 60 mcg/0.5 mL SYR (4YR UP) IM ONE (10:00)
--- NOTE | 2017-07-08 16:57 | US ---
HISTORY: r/o portal and hepatic vein thrombus Relevant interventional procedure(s): 07/06/2017 paracentesis with recovery of 8 L of ascitic fluid. COMPARISON: 07/05/[address] CT of the abdomen TECHNIQUE: Sonographic evaluation of the right upper quadrant of the abdomen. FINDINGS: LIVER: Measures 14.9 cm in length. Hepato pedal blood flow. Fatty infiltration manifest ultrasonographically as increased echogenicity of the liver parenchyma. Nodular contour to the liver consistent with cirrhosis. No focal masses. GALLBLADDER: Sludge and gallbladder wall edema identified. Gallstones are not identified nor is there sonographic Osuna's sign. COMMON BILE DUCT: Measures 6.0 mm. No stones. No dilatation. PANCREAS: Unremarkable as visualized. No mass. No ductal dilatation. RIGHT KIDNEY: Measures 2.8 x 10.2 cm in length. Normal echogenicity. No calculus, mass, or hydronephrosis. AORTA: No aneurysmal dilatation. IVC: Unremarkable. OTHER FINDINGS: Moderate intra-abdominal ascites. IMPRESSION: Cirrhotic liver, hepatocellular disease. Patent portal venous system. Hepato pedal blood flow. Residual ascites following paracentesis and removal of 8 L of fluid. Concordant results (preliminary interpretation) provided by [employer]. Procedure Completed: 20:16 Preliminary ([facility]) Report: Dictated and Authenticated: 16:09. July 07, 2017. Final Interpretation: 16:51 July 08, 2017.
[2017-07-08 22:15] LABS: TOTAL PROTEIN PERITONEAL FLUID <3.0 g/dL
[2017-07-09 03:28] VITALS: O2SAT 95
== END 2017-07-07 13:54 | disposition home or self-care (01) | DRG 433 ==
LOC: C.ER 10:53 → C.9E 13:23 → C.3T 13:41
PROVIDERS: ADMIT Internal Medicine Nephrology; ATTEND Internal Medicine Nephrology
PROC: 0W9G3ZZ Drainage of Peritoneal Cavity, Percutaneous Approach (ICD-10-PCS; principal; 2017-07-06)
DX: K70.31 Alcoholic cirrhosis of liver with ascites (principal); D68.4 Acquired coagulation factor deficiency; B18.2 Chronic viral hepatitis C; F10.20 Alcohol dependence, uncomplicated; F17.210 Nicotine dependence, cigarettes, uncomplicated; Z87.11 Personal history of peptic ulcer disease; F14.90 Cocaine use, unspecified, uncomplicated